=== PATIENT | male | born 1975 | race Caucasian/White ===

== ENCOUNTER 2021-04-09 09:39 | Emergency (ER) | payer MEDICAID, SELFPAY ==
[2021-04-09 09:40] VITALS: BP 112/81; PULSE 73; RESP 14; TEMP 36.1; O2SAT 97; BMI 23.6
[2021-04-09 10:07] VITALS: O2SAT 97
--- NOTE | 2021-04-09 10:15 | EX.ED.VIS.UR ---
HPI HPI - URI History of Present Illness Chief Complaint: Cough Informant: patient Onset/Context/Timing Onset: Today and Yesterday Context: Gradual Onset Timing: Continuous Current Severity: Mild Maximum Severity: Mild Associated Symptoms Associated Symptoms: Positive for Nasal Congestion, Myalgias and Productive Cough; Negative for Nausea, Vomiting, Diarrhea and Hemoptysis Narrative Narrative: 45-year-old male there is no past medical history other than left prosthetic eye. States he started having cough, URI symptoms with body aches and subjective fever and chills yesterday. Denies vomiting or diarrhea. No chest pain. No hemoptysis. He is unvaccinated. Prior similar symptoms: Yes Recent Illness/Hospitalization: No ROS ROS ED Review of Systems ROS Unobtainable: Denies due to encephalopathy Constitutional Constitutional ED: Reports chills, fever(s) and subjective Eyes Eyes: Denies change in vision ENT ENT ED: Denies ear pain or sore throat Cardiovascular Cardiovascular: Denies chest pain Respiratory/Chest Respiratory/Chest: Reports cough and sputum; Denies dyspnea Gastrointestinal Gastrointestinal: Denies abdominal pain, diarrhea, nausea or vomiting Genitourinary Genitourinary ED: Denies dysuria Musculoskeletal Musculoskeletal: Reports myalgias Integumentary Denies rash Neurologic Neurologic: Reports headache(s) Psychiatric Psychiatric: Denies depression Endocrine Endocrinology: Denies polyuria Hematologic/Lymphatic Hematologic/Lymphatic: Denies easy bruising Allergic/Immunologic Allergic/Immunologic ED: Denies urticaria PFSH PFSH Medical History no medical history Allergy/AdvReac Type Severity Reaction Status Date / Time No Known Allergies Allergy Verified 04/09/21 09:40 Surgical History no surgical history Social History Smoking Status: Never smoker EXAM Physical Exam Narrative Exam Narrative: Well-appearing 45-year-old male. Vital signs are stable afebrile. Pulse ox 97% on room air no hypoxia. HEENT exam unremarkable. Moist mucous membranes. Left prosthetic eye. Neck nontender no lymphadenopathy. Lungs clear to auscultation bilaterally. Heart regular rhythm no murmur. Rate about 70. Abdomen soft nontender. Moving all 4 extremities. Calves nontender without edema. Otherwise exam unremarkable. Const Vital Signs: 04/09/21 09:40 04/09/21 10:07 Temperature 97 F L Temperature Source Temporal Pulse Rate 73 Respiratory Rate 14 Respiratory Effort Normal Non-Labored Respiratory Depth Normal Respiratory Pattern Normal Blood Pressure 112/81 H Blood Pressure Mean 91 Pulse Ox 97 Oxygen Delivery Method Room Air Room Air Positive well nourished and well developed; Negative for obese, cachectic or contractures General Appearance ED: well developed and NAD; Negative for cachectic, contractures, cyanotic, diaphoretic or pallor Nutritional Appearance: Negative for cachectic or obese HEENT Reports moist mucous membranes normocephalic and atraumatic; Negative for scalp tenderness Face and Sinus: Negative for sinus tenderness External Ear: external ears normal Eyes Negative for PERRL or EOMs intact bilaterally Eyes Narrative: Left eye prosthesis. Neck no lymphadenopathy, supple, no meningeal signs and no JVD General: Negative for anterior neck swelling or lymphadenopathy Resp normal respiratory effort and clear to auscultation bilaterally Auscultation: Negative for rales, rhonchi or wheezes Cardio S1 normal heart sound, S2 normal heart sound and no murmurs Rate: regular rate Rhythm: regular rhythm GI non-tender, non-distended and no masses Inspection: Negative for abdominal distention Auscultation: normoactive bowel sounds Palpation: soft; Negative for tender or guarding Back/Spine no CVA tenderness and normal ROM General Back: Negative for CVA tenderness Cervical Spine: Negative for cervical spine tenderness Thoracic Spine / Upper Back: Negative for thoracic spinal tenderness Extremity normal to inspection and full ROM General Extremety ED: Negative for cyanosis or tenderness General Extremity: Negative for cyanosis Neuro oriented x3 Sensorium / Orientation: alert, oriented to person, oriented to place and oriented to time Psych mental status grossly normal Mood & Affect: Negative for depressed Skin General Skin Exam: Negative for jaundice or pallor Lesions: no lesions Rashes: no rashes MDM MDM MDM Narrative Medical decision making narrative: 45-year-old male with URI symptoms. Covid test and chest x-ray being obtained. Clinically does not look ill. I do not hear any signs of pneumonia on exam. Repeat exam unchanged. Lab Data Attestation: I reviewed the patient's lab results. Lab results narrative: Rapid Covid antigen test is positive. Radiography Diagnostic Testing: Clinical Impression(s) from Imaging Studies Chest X-Ray 04/09/21 10:22 IMPRESSION: Normal x-ray examination of the chest. Electronically Signed: Ric Elias MD at 11:01 EST Tel , Service support , Chest x-ray, portable, single view interpreted by myself shows no acute abnormality. Normal cardiac silhouette mediastinum. Normal lung jefferson without infiltrates. Discharge Plan Triage Chief Complaint: Cough ED Provider: Bijan Gray Dx/Rx/DC Orders Clinical Impression: Viral URI Instructions: ED URI, Viral, No Abx (Adult) Primary Care Provider: Gely Goncalves Referrals: Gely Goncalves PA [Primary Care Provider] - 1 Week if not improving Activity Restrictions/Additional Instructions: Plenty of fluids and rest. Alternate Tylenol and Motrin for body aches and fevers. Follow-up with your doctor if not improving. Return if worse. Stop smoking. Disposition Disposition: Home, Self Care
--- NOTE | 2021-04-09 10:22 | RAD_ITS ---
STUDY: X-RAY CHEST REASON FOR EXAM: Male, 45 years old. cough TECHNIQUE: Single AP portable view of the chest. COMPARISON: None. FINDINGS: The lungs are clear and expanded. There is no demonstrated pleural abnormality. Normal size heart. Normal mediastinum and rocío. Normal visualized pulmonary arteries. Normal visualized aortic arch and descending thoracic aorta. Normal visualized thoracic spine. Normal visualized ribs, clavicles, and shoulders. There is no demonstrated abnormality of the visualized soft tissue structures of the upper abdomen. RAD/Chest 1 View (Portable) IMPRESSION: Normal x-ray examination of the chest. Electronically Signed: Ric Elias MD at 11:01 EST Tel , Service support ,
[2021-04-09 11:46] VITALS: O2SAT 98
== END 2021-04-09 11:47 | disposition home or self-care (01) ==
PROVIDERS: Emergency Provider Emergency Medicine; PCP Physician Assistant
DX: J06.9 Acute upper respiratory infection, unspecified (principal); Z28.3 Underimmunization status
CPT/HCPCS: 71045; 87426; 99282

== ENCOUNTER 2021-04-14 22:57 | Emergency (ER) | payer MEDICAID, SELFPAY ==
[2021-04-14 22:57] VITALS: BP 123/88; PULSE 108; RESP 18; TEMP 36.6; O2SAT 96; BMI 22.7
--- NOTE | 2021-04-14 23:16 | EX.ED.DYSGE1 ---
HPI History of Present Illness Chief Complaint: Cold Sx Informant: patient Narrative Narrative: Patient states that he got Covid symptoms on Saturday and came in that day to get checked. He was positive. He has had a cough but no dyspnea. No real sputum production. No chest pain. He has mild congestion but no sore throat. He has not had nausea vomiting or diarrhea. He came in because he still does not feel back to normal and he has muscle aches and headaches. No neurologic symptoms. He did not get vaccinated. He has no chronic medical conditions No chronic medications No allergies No recent surgeries Lives independently, patient is a smoker but is trying to quit. His chart states non-smoker but he states he does. PFSH PFSH Home Medications dexamethasone [Decadron] 6 mg PO DAILY 7 Days #7 tab 04/09/21 [Rx Last Taken Unknown] ondansetron 4 mg PO Q8H PRN #10 tab 04/14/21 [Rx Last Taken Unknown] Allergy/AdvReac Type Severity Reaction Status Date / Time No Known Allergies Allergy Verified 04/09/21 09:40 Social History Smoking Status: Never smoker ROS ROS ED Constitutional Constitutional ED: Reports fever(s) and subjective; Denies sweats or weight loss Eyes Eyes: Reports other Details: Patient has left artificial eye. Vision has not changed though. ; Denies blurry vision or change in vision ENT ENT ED: Reports rhinorrhea; Denies sore throat Cardiovascular Cardiovascular: Denies chest pain or palpitations Respiratory/Chest Respiratory/Chest: Reports cough; Denies dyspnea or sputum Gastrointestinal Gastrointestinal: Denies abdominal pain, diarrhea, nausea or vomiting Genitourinary Genitourinary ED: Denies dysuria Musculoskeletal Musculoskeletal: Reports arthralgias and myalgias Integumentary Denies rash Neurologic Neurologic: Reports headache(s); Denies paresthesias or weakness Psychiatric Psychiatric: Denies anxiety Endocrine Endocrinology: Denies polydipsia or polyuria Allergic/Immunologic Allergic/Immunologic ED: Denies mouth swelling or urticaria EXAM Physical Exam Const Vital Signs: 04/14/21 22:57 Temperature 98 F Temperature Source Temporal Pulse Rate 108 H Respiratory Rate 18 Blood Pressure 123/88 H Blood Pressure Mean 99 Pulse Ox 96 Oxygen Delivery Method Room Air Positive well nourished and well developed; Negative for obese General Appearance ED: well developed and NAD; Negative for cyanotic or diaphoretic Nutritional Appearance: Negative for obese HEENT Reports moist mucous membranes Negative for trauma Eyes Eyes Narrative: Left artificial General Eye ED: Negative for pale conjunctiva Neck no lymphadenopathy, supple and no JVD Neck Narrative: Patient has no meningismus. He does have some mild muscular tenderness diffusely on the neck but it also involves upper shoulders back and other muscle groups. No rashes. No swelling. No limitation in range of motion. General: Negative for tenderness Chest Wall inspection of chest normal Resp normal respiratory effort and No clear to auscultation bilaterally Resp Narrative: Patient does have some mild rhonchi. Occasional dry cough. Effort and Inspection: Negative for pain with movement Auscultation: rhonchi; Negative for rales or wheezes Cardio regular rate and regular rhythm Rate: other Other Details: Heart rates about 90-95 while sitting in bed. GI normal to inspection, nondistended, normoactive bowel sounds and non-tender Palpation: soft Extremity normal to inspection Neuro oriented x3 and no sensory deficits noted Neuro Narrative: Normal gait strength and coordination. Sensorium / Orientation: alert; Negative for lethargic or stuporous Motor Exam: strength 5/5 throughout; Negative for general weakness Psych mental status grossly normal Skin no rashes or lesions noted and no wounds MDM MDM MDM Narrative Medical decision making narrative: Patient has typical symptoms of Covid. He looks very nontoxic. Although he coughs and has some coarse breath sounds, he is not hypoxic. We will walk him to make sure he does not desaturate. There is no indication of neurologic deficit. No meningismus. I do not see indication for further work-up at this time. He does not meet criteria for monoclonal antibody therapy. I will write for some Zofran in case he develops nausea. We discussed trying some Tylenol and Motrin as this might help some of his aches pains and fevers. We did discuss reasons to return. If he can get an O2 sat measurement device and if it starts dropping below 90% especially 88% he should come back. Patient was walked a fair amount around the room for several minutes. His lowest O2 saturation was 98% in the room while walking. This actually improved over his oxygenation sitting. I think he is a okay to go home. We did talk to them about typical symptoms of Covid as well as expected duration of illness. Discharge Plan Triage Chief Complaint: Cold Sx ED Provider: Rod Ayala Dx/Rx/DC Orders Clinical Impression: COVID-19, Myalgia Instructions: Coronavirus Disease 2019 (COVID-19): Caring for Yourself or Others Prescriptions: New ondansetron 4 mg tablet,disintegrating 4 mg PO Q8H PRN (Reason: nausea and vomiting) Qty: 10 RF: 0 No Action dexamethasone [Decadron] 6 mg tablet 6 mg PO DAILY 7 Days Qty: 7 RF: 0 Primary Care Provider: Gely Goncalves Referrals: Gely Goncalves PA [Primary Care Provider] - 1 Week if not improving Disposition Disposition: Home, Self Care
[2021-04-14 23:32] VITALS: O2SAT 97
[2021-04-14] MEDS: Naproxen 375 MG Tablet PO (23:51)
== END 2021-04-14 23:55 | disposition home or self-care (01) ==
LOC: ED 23:37
PROVIDERS: Emergency Provider Emergency Medicine; PCP Physician Assistant
DX: U07.1 COVID-19 (principal); M79.10 Myalgia, unspecified site
CPT/HCPCS: 99283